=== PATIENT | male | born 1985 | race Caucasian/White ===

== ENCOUNTER 2017-10-03 22:15 | Emergency (ER) | payer SELFPAY ==
[~2017-10-03] VITALS: Ht 180.3 cm; Wt 172.4 kg
[2017-10-03 22:32] VITALS: Ht 180.3 cm; Wt 172.4 kg
[2017-10-03 23:25] LABS: BASOPHIL % 0.4 % (0-2); PLATELET COUNT 219 x10^3mcL (130-400); RED CELL DISTRIBUTION WIDTH 14.1 % (11.5-14.5)
[2017-10-03 23:33] LABS: CALCIUM 8.3 mg/dL (8.5-10.1); CARBON DIOXIDE 28.2 mmol/L (21-32); CHLORIDE SERUM 104 mmol/L (98-107); CREATININE SERUM 1.1 mg/dL (0.7-1.3); GFR1 > 60 mL/min; GLUCOSE SERUM 97 mg/dL (74-106); SODIUM SERUM 139 mmol/L (136-145)
[2017-10-03 23:37] LABS: ALBUMIN 3.4 g/dL (3.4-5.0); ALKALINE PHOSPHATASE 104 U/L (46-116); ALT/SGPT 27 U/L (16-63); AMYLASE 42 U/L (25-115); AST/SGOT 16 U/L (15-37); BILIRUBIN TOTAL 0.4 mg/dL (0.20-1.00); LIPASE 139 IU/L (73-393); TOTAL PROTEIN, SERUM 7.3 g/dL (6.4-8.2)
[2017-10-04 00:38] VITALS: BP 128/84
== END 2017-10-04 00:38 | disposition home or self-care (01) ==
LOC: ED 22:15
PROVIDERS: Emergency Medicine
DX: R10.11 Right upper quadrant pain (principal); R11.0 Nausea; Z88.8 Allergy status to other drugs, medicaments and biological substances
CPT/HCPCS: 36415; 83880; J1885

== ENCOUNTER 2017-10-05 17:12 | Emergency (ER) | payer MEDICAID ==
[~2017-10-05] VITALS: Ht 180.3 cm; Wt 179.2 kg
[2017-10-05 22:17] LABS: ALBUMIN 3.6 g/dL (3.4-5.0); BILIRUBIN DIRECT 0.19 mg/dL (0.0-0.2); BILIRUBIN TOTAL 0.7 mg/dL (0.20-1.00); TOTAL PROTEIN, SERUM 7.6 g/dL (6.4-8.2)
[2017-10-05 23:24] VITALS: BP 137/82
== END 2017-10-05 23:24 | disposition home or self-care (01) ==
LOC: ED 17:12
PROVIDERS: Emergency Medicine Emergency Medical Services
DX: K21.9 Gastro-esophageal reflux disease without esophagitis (principal); K27.9 Peptic ulcer, site unspecified, unspecified as acute or chronic, without hemorrhage or perforation; K85.90 Acute pancreatitis without necrosis or infection, unspecified; F32.9 Major depressive disorder, single episode, unspecified; Z90.49 Acquired absence of other specified parts of digestive tract

== ENCOUNTER 2017-12-26 23:26 | Emergency (ER) | payer OTHER ==
[~2017-12-26] VITALS: Ht 180.3 cm; Wt 180.1 kg
[2017-12-26 23:40] VITALS: Ht 180.3 cm; Wt 180.1 kg
[2017-12-27 01:10] VITALS: BP 150/87
== END 2017-12-27 01:10 | disposition home or self-care (01) ==
LOC: ED 23:26
DX: N39.0 Urinary tract infection, site not specified (principal); Z88.5 Allergy status to narcotic agent
CPT/HCPCS: 87491; 87591

== ENCOUNTER 2018-09-12 01:54 | Emergency (ER) | payer OTHER ==
[~2018-09-12] VITALS: Ht 180.3 cm; Wt 175.5 kg
[2018-09-12 02:05] VITALS: Ht 180.3 cm; Wt 175.5 kg
[2018-09-12 02:46] LABS: UA SPECIFIC GRAVITY >=1.030 (1.005-1.035); microscopic required? YES; urine erythrocyte 1+ (NEGATIVE)
[2018-09-12 02:54] LABS: CALCIUM 8.2 mg/dL (8.5-10.1); CARBON DIOXIDE 26.1 mmol/L (21-32); CHLORIDE SERUM 106 mmol/L (98-107); GFR1 > 60 mL/min; GLUCOSE SERUM 132 mg/dL (74-106); POTASSIUM SERUM 3.9 mmol/L (3.5-5.1); SODIUM SERUM 142 mmol/L (136-145)
[2018-09-12 04:06] LABS: BASOPHIL % 0.3 % (0-2); PLATELET COUNT 247 x10^3mcL (130-400); RED CELL DISTRIBUTION WIDTH 13.9 % (11.5-14.5)
[2018-09-12 04:58] VITALS: BP 114/71
== END 2018-09-12 04:58 | disposition home or self-care (01) ==
LOC: ED 01:54
PROVIDERS: Emergency Medicine
DX: R16.1 Splenomegaly, not elsewhere classified (principal); R31.9 Hematuria, unspecified; F32.9 Major depressive disorder, single episode, unspecified; K21.9 Gastro-esophageal reflux disease without esophagitis; Z98.84 Bariatric surgery status; Z90.89 Acquired absence of other organs; Z88.6 Allergy status to analgesic agent
CPT/HCPCS: 36415; J1885